=== PATIENT | female | born 1965 | race Caucasian/White ===

== ENCOUNTER → 2020-06-23 10:53 | Outpatient (BNVA) | payer BC, SELFPAY | PROVIDERS: PCP Family Medicine; Visit Provider Family Medicine | DX: R30.0 Dysuria (principal); E78.2 Mixed hyperlipidemia; G51.0 Bell's palsy; F41.9 Anxiety disorder, unspecified; G47.00 Insomnia, unspecified | CPT/HCPCS: 80053; 80061; 81003; 84443; 85025 ==

== ENCOUNTER → 2021-02-24 11:26 | Outpatient (BNVA) | payer BC, SELFPAY | PROVIDERS: PCP Family Medicine; Visit Provider Family Medicine | DX: Z00.00 Encounter for general adult medical examination without abnormal findings (principal); E78.2 Mixed hyperlipidemia; G51.0 Bell's palsy; G47.00 Insomnia, unspecified; F41.9 Anxiety disorder, unspecified; R25.2 Cramp and spasm; Z12.11 Encounter for screening for malignant neoplasm of colon | CPT/HCPCS: 80053; 80061; 83735; 84443; 85025 ==

== ENCOUNTER → 2021-12-05 15:35 | Outpatient (BNVA) | payer BC, SELFPAY | PROVIDERS: PCP Family Medicine; Visit Provider Family Medicine | DX: R53.83 Other fatigue (principal) | CPT/HCPCS: 80053; 82306; 82607; 83540; 84443; 85025 ==

== ENCOUNTER 2022-01-05 08:51 | Day surgery (SDC) | payer BC, SELFPAY ==
[2022-01-05 09:24] VITALS: BP 144/58; PULSE 73; RESP 16; TEMP 36.3; O2SAT 99
[2022-01-05] MEDS: sodium chloride 0.9% 1,000 ML 30 ML IV (09:38)
--- NOTE | 2022-01-05 09:45 | ANES.PREANE2 ---
Pre-Anesthetic Assessment Height/Weight: Height 1.65 m Weight 6.35 kg Temp Pulse Resp BP Pulse Ox 97.3 F L 73 16 144/58 99 01/05/22 09:24 01/05/22 09:24 01/05/22 09:24 01/05/22 09:24 01/05/22 09:24 Preop Diagnosis: diagnostic Operation Date: 01/05/22 10:15 Proposed Procedures p Colonoscopy 74637/Z12.11 screening for malignant neop of colon(Not Applicable) - Haim Schmidt MD Familial anesthetic complications: PONV Was Beta Omar taken within 24 hours: N/A Was Clonidine taken within 24 hours: N/A Last intake: Intake Last Liquid Date 01/04/22 Last Liquid Time 21:00 Last Solid Date 01/03/22 Last Solid Time 21:00 Social No alcohol and No tobacco Exam alert, oriented x 3, clear to auscultation bilaterally and regular rate & rhythm Airway Mallampati: Class I Dentition: full Neuropsych Felton's palsy Anesthetic Plan ASA status: 1 Anesthesia: MAC Risk of > 500 ml blood loss (7ml/kg in children): No Medications/Allergies Home Medications Medication Instructions Recorded Confirmed Last Taken Type omega 7-tan-rmn-fish oil 1,000 mg 1 cap PO DAILY 03/24/20 01/05/22 01/02/22 History (120 mg-180 mg) capsule (Fish Oil) atorvastatin 10 mg tablet 10 mg PO DAILY #30 tab 02/24/21 01/05/22 12/29/21 Rx zolpidem 10 mg tablet (Ambien) 10 mg PO .qhs #15 tab 09/26/21 01/05/22 01/04/22 Rx gabapentin 300 mg capsule 600 mg PO QID #120 cap 10/18/21 01/05/22 01/04/22 Rx fluoxetine 20 mg capsule (Prozac) 20 mg PO DAILY #30 cap 12/21/21 01/05/22 01/04/22 Rx alprazolam 1 mg tablet (Xanax) 1 mg PO BID 30 Days #60 tab 12/25/21 01/05/22 01/04/22 Rx Allergies Allergy/AdvReac Type Severity Reaction Status Date / Time Sulfa (Sulfonamide Allergy Intermediate rash Verified 12/05/21 13:53 Antibiotics) Current Medications Generic Name Dose Route Start Last Admin Trade Name Freq PRN Reason Stop Dose Admin Sodium Chloride 1,000 mls @ 30 mls/hr 01/05/22 09:15 01/05/22 09:38 Sodium Chloride 0.9% IV 01/06/22 09:14 30 mls/hr .Q24H MATT Administration PFSH Anesthesia Medical History (Updated 12/05/21 @ 14:33 by Madonna Neff MD) Felton's palsy Hyperlipidemia Surgical History H/O spinal fusion L1 10/2019 Family History Father Diabetes Hyperlipidemia Hypertension Mother Hyperlipidemia Hypertension Social History Smoking and tobacco status: never smoked Alcohol intake: current Alcohol intake frequency: holidays/special occasions only Data Anesthesia Cardiac Studies: No Data to Display
[2022-01-05] MEDS: ondansetron 2 mg/ML SDV 2 mL 4 MG IVP (09:46)
--- NOTE | 2022-01-05 10:23 | W.PM.OPSFHP ---
Same Day Surgery H&P Indication for Procedure/HPI DATE OF PROCEDURE: January 05, 2022 CHIEF COMPLAINT/INDICATIONFOR SURGICAL PROCEDURE: colonoscopy PREOP DIAGNOSIS: diagnostic PLANNED PROCEDURE: Operation Date: 01/05/22 10:15 Proposed Procedures p Colonoscopy 26166/Z12.11 screening for malignant neop of colon(Not Applicable) - Haim Schmidt MD Medications/Allergies* Home Medications Medication Instructions Recorded Confirmed Type omega 1-tew-inl-fish oil 1,000 mg 1 cap PO DAILY 03/24/20 01/05/22 History (120 mg-180 mg) capsule (Fish Oil) Allergies/Adverse Reactions Allergy/AdvReac Type Severity Reaction Status Date / Time Sulfa (Sulfonamide Allergy Intermediate rash Verified 12/05/21 13:53 Antibiotics) Current Medications: Generic Name Dose Route Start Last Admin Trade Name Freq PRN Reason Stop Dose Admin Sodium Chloride 1,000 mls @ 30 mls/hr 01/05/22 09:15 01/05/22 09:38 Sodium Chloride 0.9% IV 01/06/22 09:14 30 mls/hr .Q24H MATT Administration Pertinent History/Comorbid Conditions* Medical History (Updated 12/05/21 @ 14:33 by Madonna Neff MD) Felton's palsy Hyperlipidemia Surgical History (Updated 03/24/20 @ 10:29 by Madonna Neff MD) H/O spinal fusion L1 10/2019 Family History (Updated 03/24/20 @ 10:22 by Miranda Paredes LPN, RT) Diabetes Father Hyperlipidemia Father Mother Hypertension Father Mother Social History Smoking and tobacco status: never smoked Alcohol intake: current Alcohol intake frequency: holidays/special occasions only Pertinent Exam Findings alert, oriented x 3 and regular rate & rhythm Recommendations Surgery/Procedure today Coding Level of Care Code Acute [employer] for [employer]
[2022-01-05 10:52] VITALS: BP 112/42; PULSE 62; RESP 16; TEMP 36.1; O2SAT 100
--- NOTE | 2022-01-05 10:53 | ANE.PACU2 ---
Inpatient post-anesthesia follow up: Airway intact: Yes Vital signs: Temperature 97.3 F Pulse Rate 73 Respiratory Rate 16 Blood Pressure 144/58 Pulse Oximetry 99 Oxygen Delivery Me thod Room Air Oxygen Flow Rate Fraction of Inspir ed Oxygen Hydration adequate: Yes Nausea and vomiting: No Pain level: 1 Mental status: Baseline
[2022-01-05 10:57] VITALS: BP 100/51; PULSE 68; RESP 18; O2SAT 99
[2022-01-05 11:10] VITALS: BP 132/59; PULSE 69; RESP 18; O2SAT 99
== END 2022-01-05 11:19 | disposition home or self-care (01) ==
PROVIDERS: PCP Family Medicine; Visit Provider Surgery
PROC: 0DJD8ZZ Inspection of Lower Intestinal Tract, Via Natural or Artificial Opening Endoscopic (ICD-10-PCS; CPT 45378; principal; 2022-01-05 10:15)
DX: Z12.11 Encounter for screening for malignant neoplasm of colon (principal); K57.30 Diverticulosis of large intestine without perforation or abscess without bleeding; Z98.1 Arthrodesis status; E78.5 Hyperlipidemia, unspecified; Z82.49 Family history of ischemic heart disease and other diseases of the circulatory system; Z83.3 Family history of diabetes mellitus
CPT/HCPCS: 45378; J2405; J2704; J7030

== ENCOUNTER → 2022-07-02 09:49 | Outpatient (BNVA) | payer BC, SELFPAY | PROVIDERS: PCP Family Medicine; Visit Provider Family Medicine | DX: R30.0 Dysuria (principal); F41.9 Anxiety disorder, unspecified; E78.2 Mixed hyperlipidemia; G47.00 Insomnia, unspecified; G51.0 Bell's palsy; E78.5 Hyperlipidemia, unspecified | CPT/HCPCS: 80053; 80061; 81000; 84443; 85025 ==

== ENCOUNTER → 2023-08-09 09:06 | Outpatient (BNVA) | payer BC, SELFPAY | PROVIDERS: PCP Family Medicine; Visit Provider Family Medicine | DX: F41.9 Anxiety disorder, unspecified (principal); E78.5 Hyperlipidemia, unspecified; G51.0 Bell's palsy; G47.00 Insomnia, unspecified; E78.2 Mixed hyperlipidemia | CPT/HCPCS: 80053; 80061; 84443; 85025 ==